=== PATIENT | female | born 2000 | race Caucasian/White ===

== ENCOUNTER 2019-12-07 11:50 | Emergency (ER) | payer SELFPAY ==
[2019-12-07 11:58] VITALS: BP 115/70; PULSE 82; TEMP 97.8; BMI 28.1
--- OUTSIDE RECORDS SUMMARY | 2019-12-07 12:06 | XMS ---
:2000 [facility] Support Name Relationship Address Phone SE Unavailable Unavailable Unavailable RASHI ZHOU COUSIN [address] [place] [id number] Re-disclosure Warning The records that you are about to access may contain information from federally- assisted alcohol or drug abuse programs. If such information is present, then the following federally mandated warning applies: This information has been disclosed to you from records protected by federal confidentiality rules (42 CFR part 2). The federal rules prohibit you from making any further disclosure of this information unless further disclosure is expressly permitted by the written consent of the person to whom it pertains or as otherwise permitted by 42 CFR part 2. A general authorization for the release of medical or other information is NOT sufficient for this purpose. The Federal rules restrict any use of the information to criminally investigate or prosecute any alcohol or drug abuse patient.The records that you are about to access may contain highly sensitive health information, the redisclosure of which is protected by Article 27-F of the [facility] Public Health law. If you continue you may haveaccess to information: Regarding HIV / AIDS; Provided by facilities licensed or operated by the [facility] Office of Mental Health; or Provided by the [facility] Office for People With Developmental Disabilities. If such information is present, then the following [facility] mandated warning applies: This information has been disclosed to you from confidential records which are protected by state law. State law prohibits you from making any further disclosure of this information without the specific written consent of the person to whom it pertains, or as otherwise permitted by law. Any unauthorized further disclosure in violation of state law may result in a fine or senior care sentence or both. A general authorization for the release of medical or other information is NOT sufficient authorization for further disclosure. Insurance Providers Payer name Policy type Policy ID Covered Covered constitution party's Policy P zuly / Coverage constitution party ID relationship to [employer] Inf ormation type serra SELF PAY SP INSURANCE Results ID Date Data Source [id number] 06/05/2019 12:00:00 AM EDT [facility] Name Value Range Interpretation Code Description Data Corina rce(s) Supporting Document(s ) 2019-nCoV [facility] RNA XXX BRI+probe- Imp This lab was ordered by [facility]Carolynn MOLINA and reported by [employer] Procedure
[2019-12-07] MEDS ORDERED: IBUPROFEN 400 MG TABLET (FP) PO ONE ×2 (12:38→13:15)
--- NOTE | 2019-12-07 12:38 | PDOC ---
History of Present Illness - General Chief Complaint: Vaginal Bleeding Stated Complaint: VAGINAL BLEEDING Time Seen by Provider: 12/07/19 12:13 History Source: Patient - History of Present Illness Timing/Duration: reports: intermittent Past History - Medical History Allergies/Adverse Reactions: Allergies Allergy/AdvReac Type Severity Reaction Status Date / Time No Known Allergies Allergy Verified 12/07/19 11:55 - Reproductive History Is Patient Now?: No - Psycho-Social/Smoking History Smoking History: Never smoked - Substance Abuse Hx (Audit-C & DAST Scrn) How often the patient has a drink containing alcohol: Never Score: In Men: 4 or > Positive; In Women: 3 or > Positive: 0 Screen Result (Pos requires Nsg. Audit-10AR): Negative Review of Systems - Review of Systems ABD/GI: No: Nausea, Vomiting, Abdominal cramping : No: Dysuria *Physical Exam - Vital Signs Last Vital Signs Temp Pulse Resp BP Pulse Ox 97.8 F 82 18 115/70 100 12/07/19 11:56 12/07/19 11:56 12/07/19 11:56 12/07/19 11:56 12/07/19 11:56 - Physical Exam General Appearance: Yes: Appropriately Dressed. No: Apparent Distress HEENT: positive: Normal Voice Neck: positive: Supple Respiratory/Chest: negative: Respiratory Distress Gastrointestinal/Abdominal: positive: Soft. negative: Tender Musculoskeletal: negative: CVA Tenderness Integumentary: positive: Dry, Warm Neurologic: positive: Fully Oriented, Alert, Normal Mood/Affect ED Treatment Course - LABORATORY CBC & Chemistry Diagram: 12/07/19 13:28 Medical Decision Making - Medical Decision Making 12/07/19 12:34 19 yo F, h/o irreg menses, here w/ on and off vaginal bleeding x 1 month, currently bleeding heavily and using about 7-8 pads in a 24-hour period. Possible weakness now, no dizziness syncope shortness of breath or chest pain. Not on control and denies sexual activity in over a year. Patient currently has no legal documents to get health insurance per family member who is accompanying patient in ED. see exam DUB Denies sexual activity > 1 yr Not on control -labs pending -anticipate dc w/ TELEPHONIC RN f/u 12/07/19 13:47 CBC wnl, patient declined to wait for urine as states she has not been sexually active in over a year. Will discharge with TELEPHONIC RN follow-up at this time 12/07/19 16:52 Upreg since returned neg Discharge - Discharge Information Problems reviewed: Yes Clinical Impression/Diagnosis: DUB (dysfunctional uterine bleeding) Condition: Good Disposition: HOME - Follow up/Referral - Patient Discharge Instructions Additional Instructions: You will need to follow up with TELEPHONIC RN for further evaluation of your vaginal bleeding You blood test and urine tests were negative here Please follow up in TELEPHONIC RN clinic at: [facility] [employer] [facility] in [place], [place] Address: [address] [place] [address] - Post Discharge Activity
[2019-12-07 13:39] LABS: BASO % 0.5 % (0-2.0); EOS % 1.4 % (0-4.5); HEMATOCRIT 38.9 % (32.4-45.2); HEMOGLOBIN 13.3 GM/dL (10.7-15.3); LYMPH % 32.6 % (8-40); MCH 29.7 pg (25.7-33.7); MCHC 34.2 g/dl (32.0-36.0); MEAN PLT VOLUME 8.2 fl (7.5-11.1); MONO % 6.7 % (3.8-10.2); NEUT % 58.8 % (42.8-82.8); PLATELET COUNT 236 K/MM3 (134-434); RBC 4.48 M/mm3 (3.60-5.2); RDW 14.2 % (11.6-15.6); WHITE BLOOD COUNT 9.2 K/mm3 (4.0-10.0)
[2019-12-07 14:09] LABS: EPI CELLS 8 /uL (0-25.1); HYALINE CASTS 1 /uL (0-3.1); PH,URINE 8.5 (5.0-8.0); URINE APPEARANCE CLOUDY; URINE BACTERIA 245 /uL (0-1359); URINE BILIRUBIN NEGATIVE (NEGATIVE); URINE COLOR ORANGE; URINE GLUCOSE (UA) NEGATIVE (NEGATIVE); URINE KETONE NEGATIVE (NEGATIVE); URINE LEUK ESTERASE TRACE (NEGATIVE); URINE NITRITE NEGATIVE (NEGATIVE); URINE PROTEIN TRACE (NEGATIVE); URINE RBC 1947 /uL (0-23.9); URINE WBC 11 /uL (0-25.8)
[2019-12-07 14:10] LABS: HCG,QUALITATIVE URINE Negative
== END 2019-12-07 14:04 | disposition home or self-care (01) ==
LOC: JER 11:50
DX: N93.8 Other specified abnormal uterine and vaginal bleeding (principal)
CPT/HCPCS: 36415; 81003; 84703; 85025; 99283-25

== ENCOUNTER 2023-04-24 16:07 | Emergency (ER) | payer SELFPAY ==
[2023-04-24 16:27] VITALS: RESP 18; BMI 28.6
[2023-04-24 17:25] LABS: BASO % 0.5 % (0-2.0); EOS % 1.2 % (0-4.5); HEMATOCRIT 40.9 % (32.4-45.2); HEMOGLOBIN 13.7 GM/dL (10.7-15.3); MCH 28.7 pg (25.7-33.7); MCHC 33.4 g/dl (32.0-36.0); MEAN CELL VOLUME 85.8 fl (80-96); MEAN PLT VOLUME 7.5 fl (7.5-11.1); MONO % 5.4 % (3.8-10.2); NEUT % 44.9 % (42.8-82.8); PLATELET COUNT 320 10^3/uL (134-434); RBC 4.77 M/mm3 (3.60-5.2); RDW 14.2 % (11.6-15.6)
[2023-04-24 17:42] LABS: POTASSIUM 3.5 mmol/L (3.5-5.1)
[2023-04-24 17:45] LABS: ALBUMIN 3.6 g/dl (3.4-5.0); BLOOD UREA NITROGEN 12.3 mg/dL (7-18)
[2023-04-24 17:48] LABS: CREATININE 0.5 mg/dL (0.55-1.3)
[2023-04-24 17:49] LABS: BILIRUBIN,TOTAL 0.3 mg/dL (0.2-1); TOT PROT 7.4 g/dl (6.4-8.2)
[2023-04-24] MEDS ORDERED: FAMOTIDINE 20 MG TABLET ONE (18:21)
[2023-04-24] MEDS ORDERED: MAG HYDROX/AL HYDROX/SIMETH 30 ML UNIT-DOSE CUP ONE (18:21)
[2023-04-24] MEDS: MAG HYDROX/AL HYDROX/SIMETH -MYLANTA- ORAL SUSPENSION PO ONE (18:32)
[2023-04-24] MEDS: FAMOTIDINE 20 MG TABLET PO ONE (18:32)
[2023-04-24 22:45] VITALS: BP 120/76; PULSE 78; TEMP 98
== END 2023-04-24 22:44 | disposition home or self-care (01) ==
LOC: JER 16:07
DX: K29.70 Gastritis, unspecified, without bleeding (principal); R10.13 Epigastric pain; R11.0 Nausea
CPT/HCPCS: 36415; 74160-TC; 76705-TC; 80053; 83690; 84703; 85025; 99285-25; Q9967